=== PATIENT | female | born 1975 | race Two or more races ===

== ENCOUNTER 2025-06-14 13:18 | Emergency (ER) | payer MEDICARE, OTHER ==
[~2025-06-14] VITALS: Ht 160 cm; Wt 72.6 kg
[2025-06-14 13:55] LABS: PLATELET COUNT (AUTO) 254 K/uL (150-450); RED BLOOD CELL COUNT(AUTO) 4.32 MIL/uL (4.0-5.2); RED CELL DISTRIBUTION WIDTH 13.6 % (11.5-15.0); WHITE BLOOD COUNT (AUTO) 8.3 K/uL (4.3-11.0)
[2025-06-14 14:03] LABS: APPEARANCE,URINE SLIGHTLY CLOUDY (CLEAR); BLOOD, URINE NEGATIVE Ery/uL (NEGATIVE); LEUKOCYTE ESTERASE ,URINE NEGATIVE (NEGATIVE); NITRITE, URINE NEGATIVE (NEGATIVE); UGLUCOSE NEGATIVE (NEGATIVE)
[2025-06-14 14:15] LABS: CALCIUM, SERUM 9.3 mg/dL (8.5-10.1); CREATININE 2.0 mg/dL (0.6-1.3); SODIUM SERUM 144.0 mmol/L (136-145); UREA NITROGEN, BLOOD 27.0 mg/dL (7-18)
[2025-06-14 14:23] LABS: ASPARTATE AMINOTRANSFERASE 51.0 U/L (15-37); TOTAL PROTEIN, SERUM 6.4 g/dL (6.4-8.2)
[2025-06-14 14:35] LABS: ADD URINE CULTURE NO; SQUAMOUS EPITHELIAL CELL,UR Few /HPF (None Seen); URINE AMORPHOUS PHOSPHATES Many /HPF (None Seen)
[2025-06-14 15:00] VITALS: BP 141/69; TEMP 98.3; O2SAT 98
== END 2025-06-14 16:30 | disposition admitted as inpatient to this hospital (09) ==
LOC: ER 13:25
DX: R10.13 Epigastric pain (principal); R61 Generalized hyperhidrosis; R94.31 Abnormal electrocardiogram [ECG] [EKG]; K80.50 Calculus of bile duct without cholangitis or cholecystitis without obstruction; Z88.1 Allergy status to other antibiotic agents; Z88.2 Allergy status to sulfonamides; Z87.19 Personal history of other diseases of the digestive system; Z88.8 Allergy status to other drugs, medicaments and biological substances
CPT/HCPCS: 36415; 71045-TC; 76705-TC; 80053-TC; 81001; 83690-TC; 84484-TC; 85025-TC